=== PATIENT | male | born 1955 | race Caucasian/White ===

== ENCOUNTER 2020-03-03 07:31 | Outpatient (CLI) | payer MEDICARE, OTHER ==
--- NOTE | 2020-03-03 08:06 | ULT ---
Ultrasound of the abdominal aorta INDICATION: Screening evaluation for abdominal aortic aneurysm FINDINGS: Proximal abdominal aorta: Patent.. AP diameter is 2.87cm. Mediolateral diameter is 2.74 cm. Mid abdominal aorta: Patent.. AP diameter of is 2.8cm. Mediolateral diameter is 2.6 cm. Distal abdominal aorta: Patent. AP diameter is 1.5 cm. Mediolateral diameters 2.7 cm. Left common iliac artery: Patent. AP diameter is 1.6cm. Right common iliac artery: Patent. AP diameter is 1.6 cm. 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
--- NOTE | 2020-03-03 09:18 | CT ---
EXAM: CT chest without contrast per low-dose cancer screening protocol HISTORY: History of smoking and nicotine dependence COMPARISON: Chest x-ray 05/11/2018 TECHNIQUE: Multiple contiguous axial images were obtained in a CT of the chest without contrast per l ow-dose cancer screening protocol. Sagittal and coronal reformats were performed. FINDINGS: Pulmonary nodules: No suspicious pulmonary nodules are seen. No focal infiltrates are seen. Pleural space: No pneumothorax or pleural effusion are seen. Heart: The heart is normal in size. Mediastinum: No hilar or mediastinal lymphadenopathy appreciated on this limited noncontrast examinat ion. Bones: Degenerative changes in the spine. Visualized subdiaphragmatic structures: Unremarkable. IMPRESSION: Lung RADS category 1-negative.
== END 2020-03-03 07:32 | disposition home or self-care (01) ==
LOC: BICULT 07:31
PROVIDERS: ATTEND Family Medicine
DX: Z13.6 Encounter for screening for cardiovascular disorders (principal); Z12.2 Encounter for screening for malignant neoplasm of respiratory organs; F17.210 Nicotine dependence, cigarettes, uncomplicated; I77.811 Abdominal aortic ectasia; I72.3 Aneurysm of iliac artery
CPT/HCPCS: 76775; G0297

== ENCOUNTER 2020-08-07 11:40 | Outpatient (CLI) | payer MEDICARE, OTHER | END 2020-08-07 11:41 | disposition home or self-care (01) | LOC: BICRAD 11:40 | PROVIDERS: ATTEND Family Medicine | DX: M79.89 Other specified soft tissue disorders (principal); M18.11 Unilateral primary osteoarthritis of first carpometacarpal joint, right hand; M19.041 Primary osteoarthritis, right hand ==

== ENCOUNTER 2021-02-20 06:52 | Outpatient (CLI) | payer MEDICARE, OTHER | END 2021-02-20 06:53 | disposition home or self-care (01) | LOC: BICULT 06:52 | PROVIDERS: ATTEND Family Medicine | DX: Z12.2 Encounter for screening for malignant neoplasm of respiratory organs (principal); Z13.6 Encounter for screening for cardiovascular disorders; F17.210 Nicotine dependence, cigarettes, uncomplicated | CPT/HCPCS: 71271; 76775 ==

== ENCOUNTER 2022-02-12 12:10 | Outpatient (CLI) | payer MEDICARE, OTHER | END 2022-02-12 12:11 | disposition home or self-care (01) | LOC: BICCT 12:10 → CT 12:11 | PROVIDERS: ATTEND Family Medicine | DX: Z12.2 Encounter for screening for malignant neoplasm of respiratory organs (principal); F17.210 Nicotine dependence, cigarettes, uncomplicated | CPT/HCPCS: 71271 ==

== ENCOUNTER 2023-02-21 13:11 | Outpatient (CLI) | payer MEDICARE, OTHER | END 2023-02-21 13:12 | disposition home or self-care (01) | LOC: BICCT 13:11 | PROVIDERS: ATTEND Family Medicine | DX: Z12.2 Encounter for screening for malignant neoplasm of respiratory organs (principal); F17.210 Nicotine dependence, cigarettes, uncomplicated | CPT/HCPCS: 71271 ==

== ENCOUNTER 2024-02-22 12:34 | Outpatient (CLI) | payer MEDICARE | END 2024-02-22 12:35 | disposition home or self-care (01) | LOC: BICCT 12:34 | PROVIDERS: ATTEND Family Medicine | DX: Z12.2 Encounter for screening for malignant neoplasm of respiratory organs (principal); F17.210 Nicotine dependence, cigarettes, uncomplicated | CPT/HCPCS: 71271 ==

== ENCOUNTER 2025-02-27 10:38 | Outpatient (CLI) | payer MEDICARE | END 2025-02-27 10:39 | disposition home or self-care (01) | LOC: BICCT 10:38 | PROVIDERS: ATTEND Family Medicine | DX: Z12.2 Encounter for screening for malignant neoplasm of respiratory organs (principal); F17.210 Nicotine dependence, cigarettes, uncomplicated | CPT/HCPCS: 71271 ==